=== PATIENT | female | born 1955 | race Caucasian/White ===

== ENCOUNTER → 2019-02-13 | Outpatient (CLI) | payer MEDICARE | END | disposition home or self-care (01) | LOC: RAD 10:42 | PROVIDERS: ATTEND Specialist | DX: M47.812 Spondylosis without myelopathy or radiculopathy, cervical region (principal); M47.817 Spondylosis without myelopathy or radiculopathy, lumbosacral region; M53.2X7 Spinal instabilities, lumbosacral region; M18.11 Unilateral primary osteoarthritis of first carpometacarpal joint, right hand; M65.341 Trigger finger, right ring finger; M67.919 Unspecified disorder of synovium and tendon, unspecified shoulder; M71.9 Bursopathy, unspecified | CPT/HCPCS: 72040; 72114 ==

== ENCOUNTER → 2019-02-18 | Outpatient (CLI) | payer MEDICARE | END | disposition home or self-care (01) | LOC: CFH 07:47 | PROVIDERS: ATTEND Family Medicine | DX: Z12.31 Encounter for screening mammogram for malignant neoplasm of breast (principal); M85.89 Other specified disorders of bone density and structure, multiple sites; M81.0 Age-related osteoporosis without current pathological fracture | CPT/HCPCS: 77063; 77067; 77080 ==

== ENCOUNTER 2019-04-17 10:17 | Outpatient (CLI) | payer MEDICARE | END 2019-04-17 23:59 | disposition home or self-care (01) | LOC: CFH 10:17 | PROVIDERS: ATTEND Specialist | DX: M18.0 Bilateral primary osteoarthritis of first carpometacarpal joints (principal) ==

== ENCOUNTER → 2019-04-29 | Outpatient (CLI) | payer MEDICARE | END | disposition home or self-care (01) | LOC: CFH 12:59 | PROVIDERS: ATTEND Nurse Practitioner | DX: Z12.2 Encounter for screening for malignant neoplasm of respiratory organs (principal); J44.9 Chronic obstructive pulmonary disease, unspecified; K21.9 Gastro-esophageal reflux disease without esophagitis; Z87.891 Personal history of nicotine dependence | CPT/HCPCS: G0297 ==

== ENCOUNTER → 2019-06-01 | Outpatient (CLI) | payer MEDICARE | END | disposition home or self-care (01) | LOC: RAD 11:43 | PROVIDERS: ATTEND Specialist | DX: M16.12 Unilateral primary osteoarthritis, left hip (principal) ==

== ENCOUNTER → 2019-07-30 | Outpatient (CLI) | payer MEDICARE ==
[~2019-07-30] MED LIST: AMLO10TA8 PO; CYCL-259 PO; DULO30CA2 PO; ESOM40CA PO; LISI-167 PO; Lyrica PO; OXYC-306 PO
[2019-07-30 15:06] LABS: BASOPHILS # (AUTO) 0.05 x10^3/uL (0-0.1); BASOPHILS % (AUTO) 1 % (0-1); EOSINOPHILS # (AUTO) 0.29 x10^3/uL (0-0.4); EOSINOPHILS % (AUTO) 4 % (1-7); LYMPHOCYTES # (AUTO) 2.52 x10^3/uL (1-3.4); LYMPHOCYTES % (AUTO) 32 % (22-44); MD NO; MEAN CORPUSCULAR HGB CONC 33.7 g/dL (32.4-35.8); MEAN CORPUSCULAR VOLUME 97.7 fL (80-100); MEAN PLATELET VOLUME 8.9 fL (7.4-10.4); MONOCYTES # (AUTO) 0.59 x10^3/uL (0.2-0.8); MONOCYTES % (AUTO) 8 % (2-9); NEUTROPHILS % (AUTO) 56 % (42-75); PLATELET COUNT 294 x10^3/uL (130-400); RED BLOOD COUNT 3.92 x10^6/uL (3.82-5.3); RED CELL DISTRIBUTION WIDTH 13.7 % (9.6-15.2)
[2019-07-30 15:18] LABS: ALBUMIN 4.3 g/dL (3.4-5.0); ANION GAP 8 mmol/L (5-15); CALCIUM 9.3 mg/dL (8.5-10.1); CHLORIDE 108 mmol/L (98-107)
[2019-07-30 15:22] LABS: ALANINE AMINOTRANSFERASE 37 U/L (12-78); ALKALINE PHOSPHATASE 97 U/L (45-117); BILIRUBIN,TOTAL 0.4 mg/dL (0.2-1.0); CREATININE 1.08 mg/dL (0.55-1.02); TOTAL PROTEIN 8.3 g/dL (6.4-8.2)
== END | disposition home or self-care (01) ==
LOC: STAR 13:58
PROVIDERS: ATTEND Orthopaedic Surgery
DX: Z01.818 Encounter for other preprocedural examination (principal); M16.12 Unilateral primary osteoarthritis, left hip
CPT/HCPCS: 36415; 80053; 85025; 87081; 93005

== ENCOUNTER 2019-08-05 11:18 | Observation (INO) | payer MEDICARE ==
[~2019-08-05] VITALS: Ht 154.9 cm; Wt 64.2 kg
[~2019-08-05 11:18] MED LIST changes: +EPINEPHRINE 1 MG/ML, 1ML ONE; +KETOROLAC 30 MG/1 ML ONE; +ROPIvacaine/PF 0.2%, 20 ML ONE; +SODIUM CHLORIDE 0.9% 50 ML ONE; +TRANEXAMIC ACID 100 MG/ML, 10ML ONE; +VANCOMYCIN 1,000 MG ONE
[2019-08-05] MEDS ORDERED: CHLORHEXIDINE 15 ML UDC MM ONE (11:30)
[2019-08-05] MEDS ORDERED: CELE200C PO (11:43)
[2019-08-05] MEDS ORDERED: PREG75CA PO (11:43)
[2019-08-05] MEDS ORDERED: OXYB15TA18 PO (11:43)
[2019-08-05] MEDS ORDERED: ALBU6.7H8 INH (11:43)
[2019-08-05] MEDS ORDERED: ALBU8.5H8 INH (11:43)
[2019-08-05] MEDS ORDERED: ALPR0.5T7 PO (11:43)
[2019-08-05] MEDS ORDERED: DULO30CA2 PO ×2 (11:43)
[2019-08-05] MEDS ORDERED: LACTATED RINGERS 1,000 ML IV SCH (12:00)
[2019-08-05] MEDS ORDERED: KETOROLAC 60 MG/2 ML ONE (12:35)
[2019-08-05] MEDS ORDERED: ACETAMINOPHEN 500 MG TABLET PO STA (13:27)
[2019-08-05] MEDS ORDERED: OxyconTIN ER 10 MG TAB.ER PO STA (13:27)
[2019-08-05] MEDS ORDERED: FENTANYL PF 100 MCG/2ML ONE ×6 (13:29→16:04)
[2019-08-05] MEDS ORDERED: PROPOFOL 10 MG/ML, 20ML ONE (13:30)
[2019-08-05] MEDS ORDERED: LIDOCAINE-MPF 2% ,5ML ONE ×2 (13:30→14:17)
[2019-08-05] MEDS ORDERED: CEFAZOLIN 1,000 MG ONE (13:43)
[2019-08-05] MEDS ORDERED: DEXAMETHASONE 4 MG/ML, 1ML ONE (13:43)
[2019-08-05] MEDS ORDERED: EPHEDRINE 50 MG/ML, 1ML ONE ×2 (14:17)
[2019-08-05] MEDS ORDERED: OXYcodone 5 MG/5 ML ORAL.SOL UDC PO PRN ×2 (14:30→17:00)
[2019-08-05] MEDS ORDERED: PROMETHAZINE 25 MG/ML, 1ML IVPush PRN (14:30)
[2019-08-05] MEDS ORDERED: LORazepam 2 MG/ML, 1ML IVPush PRN ×2 (14:30→17:00)
[2019-08-05] MEDS ORDERED: ONDANSETRON 2MG/ML, 2ML IVPush PRN ×2 (14:30→17:00)
[2019-08-05] MEDS ORDERED: ONDANSETRON 2MG/ML, 2ML ONE ×2 (15:06)
[2019-08-05] MEDS ORDERED: POLYETHYLENE GLYCOL 17 GM PACKET PO PRN (15:30)
[2019-08-05] MEDS ORDERED: ALUMINUM/MAG/SIMETHICONE 30 ML UDC PO PRN (15:30)
[2019-08-05] MEDS ORDERED: HYDROmorphone 1 MG/ML, 1ML INJ IVPush PRN ×3 (15:30→17:00)
[2019-08-05] MEDS ORDERED: ZOLPIDEM 5MG TABLET PO PRN (15:30)
[2019-08-05] MEDS ORDERED: PROMETHAZINE 25 MG/ML, 1ML IM PRN (15:30)
[2019-08-05] MEDS ORDERED: ONDANSETRON 4 MG TABLET PO PRN (15:30)
[2019-08-05] MEDS ORDERED: ONDANSETRON 2MG/ML, 2ML IV PRN (15:30)
[2019-08-05] MEDS ORDERED: DIPHENHYDRAMINE 25 MG CAPSULE PO PRN (15:30)
[2019-08-05] MEDS ORDERED: SENNA/DOCUSATE TABLET PO PRN (15:30)
[2019-08-05] MEDS ORDERED: DIAZEPAM 5 MG TABLET PO PRN (15:30)
[2019-08-05] MEDS ORDERED: BISACODYL 10 MG SUPP PR PRN (15:30)
[2019-08-05] MEDS ORDERED: PROMETHAZINE 12.5 MG SUPP PR PRN ×2 (15:30→17:00)
[2019-08-05] MEDS ORDERED: MAGNESIUM HYDROXIDE 8%, 30ML UDC PO PRN (15:30)
[2019-08-05] MEDS ORDERED: PSYLLIUM PACKET PO PRN (15:30)
[2019-08-05] MEDS ORDERED: LORazepam 2 MG/ML, 1ML ONE (15:33)
[2019-08-05] MEDS: FENTANYL PF 100 MCG/2ML IV PRN ×5 (15:34→16:05)
[2019-08-05] MEDS ORDERED: HYDROmorphone 1 MG/ML, 1ML INJ ONE (16:04)
[2019-08-05] MEDS ORDERED: TRANEXAMIC ACID 1,000 MG in SODIUM CHLORIDE 0.9% 100 ML IVPB ONE (17:00)
[2019-08-05] MEDS ORDERED: FENTANYL PF 100 MCG/2ML IV PRN (17:00)
[2019-08-05 19:00] VITALS: BP 103/68
[2019-08-05] MEDS: ACETAMINOPHEN 500 MG TABLET PO SCH (19:45)
[2019-08-05] MEDS: PREGABALIN 75 MG CAPSULE PO SCH ×2 (19:46→21:00)
[2019-08-05] MEDS: CALCIUM/VITAMIN D3 250-125 TABLET PO SCH (19:46)
[2019-08-05] MEDS: FERROUS SULFATE 325 MG TABLET PO SCH (19:46)
[2019-08-05] MEDS: OXYcodone IR 5MG TABLET PO PRN ×2 (20:18→21:05)
[2019-08-05] MEDS: D5%-0.45% NACL 1,000 ML IV SCH (20:19)
[2019-08-05] MEDS ORDERED: DULOXETINE 30 MG CAPSULE.DR PO SCH (21:00)
[2019-08-05] MEDS ORDERED: LISINOPRIL 10 MG TABLET PO SCH (21:00)
[2019-08-05] MEDS: KETOROLAC 30 MG/1 ML IV SCH (21:06)
[2019-08-05] MEDS: ASPIRIN 81 MG TABLET EC PO SCH (21:06)
[2019-08-05] MEDS: DOCUSATE 100 MG CAPSULE PO SCH (21:06)
[2019-08-05] MEDS: CEFAZOLIN PMX 1GM/50ML 50 ML IVPB SCH (21:07)
[2019-08-06 00:02] VITALS: BP 97/64
[2019-08-06] MEDS: ACETAMINOPHEN 500 MG TABLET PO SCH ×2 (02:15→08:16)
[2019-08-06] MEDS: OXYcodone IR 5MG TABLET PO PRN ×3 (02:16→10:35)
[2019-08-06] MEDS: D5%-0.45% NACL 1,000 ML IV SCH (03:39)
[2019-08-06 03:44] VITALS: BP 96/70
[2019-08-06] MEDS: CEFAZOLIN PMX 1GM/50ML 50 ML IVPB SCH (05:10)
[2019-08-06] MEDS: KETOROLAC 30 MG/1 ML IV SCH (05:10)
[2019-08-06] MEDS ORDERED: DEXAMETHASONE 4 MG/ML, 1ML IVPush SCH (06:00)
[2019-08-06 07:11] VITALS: BP 100/73
[2019-08-06] MEDS: CALCIUM/VITAMIN D3 250-125 TABLET PO SCH (08:15)
[2019-08-06] MEDS: FERROUS SULFATE 325 MG TABLET PO SCH (08:15)
[2019-08-06] MEDS: PREGABALIN 75 MG CAPSULE PO SCH (08:16)
[2019-08-06] MEDS: ASPIRIN 81 MG TABLET EC PO SCH (08:16)
[2019-08-06] MEDS: DOCUSATE 100 MG CAPSULE PO SCH (08:16)
[2019-08-06] MEDS ORDERED: AMLODIPINE 10 MG TAB PO SCH (09:00)
[2019-08-06] MEDS ORDERED: ASCORBIC ACID 500 MG TABLET PO SCH (09:00)
[2019-08-06] MEDS ORDERED: OXYBUTYNIN CHLORIDE 15 MG PO SCH (09:00)
[2019-08-06] MEDS ORDERED: (Esomeprazole Magnesium** (Nexium**) 40 MG) PO SCH (09:00)
[2019-08-06] MEDS ORDERED: CYCLOBENZAPRINE 10 MG TABLET PO SCH (09:00)
[2019-08-06] MEDS ORDERED: DULOXETINE 30 MG CAPSULE.DR PO SCH (09:00)
[2019-08-06] MEDS ORDERED: MULTIVITAMINS/MINERALS TABLET PO SCH (09:00)
[2019-08-06] MEDS ORDERED: OXYC5TAB2 PO (09:28)
[2019-08-06 10:46] VITALS: BP 116/77
== END 2019-08-06 11:51 | disposition home or self-care (01) ==
LOC: OUT 11:18 → ORIP 15:27 → 4NE 18:07
PROVIDERS: ADMIT Orthopaedic Surgery; ATTEND Orthopaedic Surgery
DX: M16.12 Unilateral primary osteoarthritis, left hip (principal); I10 Essential (primary) hypertension; J44.9 Chronic obstructive pulmonary disease, unspecified; K21.9 Gastro-esophageal reflux disease without esophagitis; M81.0 Age-related osteoporosis without current pathological fracture; M79.7 Fibromyalgia; Z79.899 Other long term (current) drug therapy; Z87.891 Personal history of nicotine dependence
CPT/HCPCS: 27130; 36415; 72170; 85014; 85018; 86850; 86900; 96365; 96366; 96375; 96376; 97161; 97165; C1713; C1776; G0378; J0171; J0690; J1100; J1170; J1885; J2060; J2405; J2704; J2795; J3010; J3370; J3490; J7120

== ENCOUNTER → 2020-03-17 | Outpatient (CLI) | payer MEDICARE ==
[~2020-03-17] MED LIST changes: +ALBU6.7H8 INH; +ALBU8.5H8 INH; +ALPR0.5T7 PO; +AMLO-211 PO; -AMLO10TA8 PO; +CELE200C PO; -EPINEPHRINE 1 MG/ML, 1ML ONE; +HYDR-826 PO; -KETOROLAC 30 MG/1 ML ONE; +OXYB15TA18 PO; +OXYC5TAB2 PO; +PREG75CA PO; +Pt. to Bring List; -ROPIvacaine/PF 0.2%, 20 ML ONE; -SODIUM CHLORIDE 0.9% 50 ML ONE; -TRANEXAMIC ACID 100 MG/ML, 10ML ONE; -VANCOMYCIN 1,000 MG ONE
[2020-03-17 12:24] LABS: BASOPHILS % (AUTO) 1 % (0-1); EOSINOPHILS % (AUTO) 0 % (1-7); LYMPHOCYTES % (AUTO) 19 % (22-44); MEAN CORPUSCULAR HEMOGLOBIN 31.9 pg (27.0-34.8); MEAN CORPUSCULAR HGB CONC 33.9 g/dL (32.4-35.8); MEAN PLATELET VOLUME 7.7 fL (7.4-10.4); MONOCYTES % (AUTO) 6 % (2-9); NEUTROPHILS % (AUTO) 74 % (42-75); PLATELET COUNT 341 x10^3/uL (130-400); RED BLOOD COUNT 3.87 x10^6/uL (3.82-5.3); RED CELL DISTRIBUTION WIDTH 12.8 % (9.6-15.2)
[2020-03-17 12:26] LABS: MD NO
[2020-03-17 12:34] LABS: ALBUMIN 4.1 g/dL (3.4-5.0); ANION GAP 6 mmol/L (5-15); CALCIUM 9.3 mg/dL (8.5-10.1); CHLORIDE 102 mmol/L (98-107)
[2020-03-17 12:38] LABS: ALANINE AMINOTRANSFERASE 39 U/L (12-78); ALKALINE PHOSPHATASE 96 U/L (45-117); BILIRUBIN,TOTAL 0.4 mg/dL (0.2-1.0); CREATININE 0.94 mg/dL (0.55-1.02); TOTAL PROTEIN 7.8 g/dL (6.4-8.2)
== END | disposition home or self-care (01) ==
LOC: STAR 11:04
PROVIDERS: ATTEND Orthopaedic Surgery
DX: Z01.810 Encounter for preprocedural cardiovascular examination (principal); Z01.818 Encounter for other preprocedural examination; M25.551 Pain in right hip; Z20.828 Contact with and (suspected) exposure to other viral communicable diseases
CPT/HCPCS: 80053; 85025; 87081; 87635; 93005

== ENCOUNTER 2020-03-23 09:23 | Observation (INO) | payer MEDICARE ==
[~2020-03-23] VITALS: Ht 154.9 cm; Wt 66.2 kg
[~2020-03-23 09:23] MED LIST changes: -OXYC-306 PO; +OXYC1TAB17 PO
[2020-03-23] MEDS ORDERED: PROMETHAZINE 25 MG/ML, 1ML IVPush PRN (09:30)
[2020-03-23] MEDS ORDERED: hydrALAzine 20 MG/ML, 1ML IV PRN (09:30)
[2020-03-23] MEDS ORDERED: EPHEDRINE 50 MG/ML, 1ML IVPush PRN ×2 (09:30→11:30)
[2020-03-23] MEDS ORDERED: OXYcodone 5 MG/5 ML ORAL.SOL UDC PO PRN ×2 (09:30→11:30)
[2020-03-23] MEDS ORDERED: LABETALOL 5MG/ML, 20ML IV PRN ×2 (09:30→11:30)
[2020-03-23] MEDS ORDERED: ONDANSETRON 2MG/ML, 2ML IVPush PRN ×3 (09:30→11:30)
[2020-03-23] MEDS ORDERED: HYDROmorphone 1 MG/ML, 1ML INJ IVPush PRN ×2 (09:30→11:30)
[2020-03-23] MEDS ORDERED: FENTANYL PF 100 MCG/2ML IV PRN (09:30)
[2020-03-23] MEDS ORDERED: CHLORHEXIDINE 15 ML UDC ONE (10:15)
[2020-03-23] MEDS ORDERED: ACETAMINOPHEN 500 MG TABLET PO ONE (10:30)
[2020-03-23] MEDS ORDERED: VANCOMYCIN PER PHARMACY MC ONE (10:30)
[2020-03-23] MEDS ORDERED: PLEASE ENTER ALLERGIES MC SCH (10:30)
[2020-03-23] MEDS ORDERED: CHLORHEXIDINE 15 ML UDC MM ONE (10:30)
[2020-03-23] MEDS ORDERED: LACTATED RINGERS 1,000 ML IV SCH (11:00)
[2020-03-23] MEDS ORDERED: VANCOMYCIN 1,600 MG in SODIUM CHLORIDE 0.9% 250 ML IV ONE (11:00)
[2020-03-23] MEDS ORDERED: TRANEXAMIC ACID 100 MG/ML, 10ML ONE ×2 (11:14→11:16)
[2020-03-23] MEDS ORDERED: KETOROLAC 60 MG/2 ML ONE (11:14)
[2020-03-23] MEDS ORDERED: ROPIvacaine/PF 0.2%, 20 ML ONE (11:15)
[2020-03-23] MEDS ORDERED: VANCOMYCIN 1,000 MG ONE (11:15)
[2020-03-23] MEDS ORDERED: SODIUM CHLORIDE 0.9% 50 ML ONE (11:15)
[2020-03-23] MEDS ORDERED: EPINEPHRINE 1 MG/ML, 1ML ONE (11:16)
[2020-03-23] MEDS ORDERED: GLYCOPYRROLATE 0.2MG/1ML, 5ML ONE (11:28)
[2020-03-23] MEDS ORDERED: MIDAZOLAM 1 MG/ML, 2ML ONE ×2 (11:28→11:39)
[2020-03-23] MEDS ORDERED: DEXAMETHASONE 4 MG/ML, 5ML ONE (11:28)
[2020-03-23] MEDS ORDERED: PROPOFOL 10 MG/ML, 20ML ONE (11:28)
[2020-03-23] MEDS ORDERED: LIDOCAINE-MPF 2% ,5ML ONE (11:28)
[2020-03-23] MEDS ORDERED: FENTANYL PF 250 MCG/5ML ONE ×2 (11:28→11:40)
[2020-03-23] MEDS ORDERED: ROCURONIUM 10MG/ML,5ML ONE (11:28)
[2020-03-23] MEDS ORDERED: DIPHENHYDRAMINE 50 MG/ML, 1ML IVPush PRN (11:30)
[2020-03-23] MEDS ORDERED: OXYcodone/APAP 5/325MG TABLET PO PRN (11:30)
[2020-03-23] MEDS ORDERED: HYDROcodone/APAP 7.5-325MG/15ML UDC PO PRN (11:30)
[2020-03-23] MEDS ORDERED: MORPHINE SULFATE 4 MG/ML, 1ML IVPush PRN (11:30)
[2020-03-23] MEDS ORDERED: MIDAZOLAM 1 MG/ML, 2ML IV PRN (11:30)
[2020-03-23] MEDS ORDERED: METHOCARBAMOL 1,000 MG in DEXTROSE 5% 100 ML IV PRN (11:30)
[2020-03-23] MEDS ORDERED: LORazepam 2 MG/ML, 1ML IVPush PRN (11:30)
[2020-03-23] MEDS ORDERED: ONDANSETRON 4 MG TABLET PO PRN (11:30)
[2020-03-23] MEDS ORDERED: ALBUTEROL SULFATE 2.5 MG/3 ML NPPB PRN (11:30)
[2020-03-23] MEDS ORDERED: EPHEDRINE 50 MG/ML, 1ML IM PRN (11:30)
[2020-03-23] MEDS ORDERED: PROMETHAZINE 12.5 MG SUPP PR PRN (11:30)
[2020-03-23] MEDS ORDERED: MEPERIDINE/PF 25MG/0.5ML IVPush PRN (11:30)
[2020-03-23] MEDS ORDERED: METOCLOPRAMIDE 5 MG/ML, 2ML IVPush PRN (11:30)
[2020-03-23] MEDS ORDERED: DIPHENHYDRAMINE 50 MG CAPSULE PO PRN (11:30)
[2020-03-23] MEDS ORDERED: HALOPERIDOL 5 MG/ML IV ONE (11:30)
[2020-03-23] MEDS ORDERED: CEFAZOLIN 1,000 MG ONE (11:51)
[2020-03-23] MEDS ORDERED: OXYcodone 5 MG/5 ML ORAL.SOL UDC ONE (13:38)
[2020-03-23] MEDS ORDERED: FENTANYL PF 100 MCG/2ML ONE ×2 (13:38→13:59)
[2020-03-23] MEDS: FENTANYL PF 100 MCG/2ML IV PRN ×4 (13:45→14:00)
[2020-03-23] MEDS ORDERED: TRANEXAMIC ACID 1,000 MG in SODIUM CHLORIDE 0.9% 100 ML IVPB ONE (13:54)
[2020-03-23] MEDS ORDERED: DIAZEPAM 5 MG/ML, 2ML ONE (14:00)
[2020-03-23] MEDS: DIAZEPAM 5 MG/ML, 2ML IVPush PRN ×2 (14:03→14:15)
[2020-03-23] MEDS ORDERED: ALBUTEROL HFA 90 MCG/SPRAY INH PRN (16:00)
[2020-03-23] MEDS ORDERED: ALBUTEROL HFA 90 MCG/SPRAY INH SCH (16:00)
[2020-03-23] MEDS: KETOROLAC 30 MG/1 ML IV SCH ×2 (16:23→23:26)
[2020-03-23] MEDS: PREGABALIN 75 MG CAPSULE PO SCH ×2 (16:23→20:46)
[2020-03-23] MEDS: OXYcodone/APAP 10/325MG TABLET PO PRN ×2 (17:55→23:27)
[2020-03-23 19:24] VITALS: BP 104/51
[2020-03-23] MEDS: CEFAZOLIN PMX 1GM/50ML 50 ML IVPB SCH (20:34)
[2020-03-23] MEDS: DOCUSATE 100 MG CAPSULE PO SCH (20:47)
[2020-03-23] MEDS ORDERED: LISINOPRIL 10 MG TABLET PO SCH (21:00)
[2020-03-23] MEDS ORDERED: DULOXETINE 30 MG CAPSULE.DR PO SCH (21:00)
[2020-03-24 00:07] VITALS: BP 115/71
[2020-03-24 04:30] VITALS: BP 132/84
[2020-03-24] MEDS: OXYcodone/APAP 10/325MG TABLET PO PRN ×2 (04:39→08:48)
[2020-03-24] MEDS: CEFAZOLIN PMX 1GM/50ML 50 ML IVPB SCH (04:39)
[2020-03-24] MEDS ORDERED: ASPIRIN 81 MG TABLET EC PO SCH ×3 (06:00→18:00)
[2020-03-24] MEDS ORDERED: DEXAMETHASONE 4 MG/ML, 1ML IVPush SCH (06:00)
[2020-03-24 07:45] VITALS: BP 121/72
[2020-03-24] MEDS: KETOROLAC 30 MG/1 ML IV SCH (08:01)
[2020-03-24] MEDS: DOCUSATE 100 MG CAPSULE PO SCH (08:03)
[2020-03-24] MEDS: PREGABALIN 75 MG CAPSULE PO SCH (08:04)
[2020-03-24] MEDS ORDERED: DULOXETINE 30 MG CAPSULE.DR PO SCH (09:00)
[2020-03-24] MEDS ORDERED: OXYBUTYNIN CHLORIDE 5 MG TABLET PO SCH (09:00)
[2020-03-24] MEDS ORDERED: CYCLOBENZAPRINE 10 MG TABLET PO SCH (09:00)
[2020-03-24] MEDS ORDERED: AMLODIPINE 10 MG TAB PO SCH (09:00)
[2020-03-24] MEDS ORDERED: ALBUTEROL HFA 90 MCG/SPRAY INH SCH (09:00)
[2020-03-24] MEDS ORDERED: (Esomeprazole Magnesium** (Nexium**) 40 MG) PO SCH (09:00)
== END 2020-03-24 12:30 | disposition home or self-care (01) ==
LOC: OUT 09:23 → ORIP 11:25 → 4NE 15:02
PROVIDERS: ADMIT Orthopaedic Surgery; ATTEND Orthopaedic Surgery
DX: M16.11 Unilateral primary osteoarthritis, right hip (principal); J45.909 Unspecified asthma, uncomplicated; M79.7 Fibromyalgia; I10 Essential (primary) hypertension; K21.9 Gastro-esophageal reflux disease without esophagitis; M81.0 Age-related osteoporosis without current pathological fracture; F41.8 Other specified anxiety disorders; F17.200 Nicotine dependence, unspecified, uncomplicated; Z96.641 Presence of right artificial hip joint; Z79.899 Other long term (current) drug therapy
CPT/HCPCS: 27130; 36415; 72170; 86850; 86900; 96365; 96366; 96375; 96376; 97161; C1713; C1776; G0378; J0171; J0690; J1100; J1885; J2250; J2704; J2795; J3010; J3360; J3370; J3490; J7050; J7120; Q0177

== ENCOUNTER → 2020-05-13 | Outpatient (CLI) | payer MEDICARE ==
[~2020-05-13] MED LIST changes: -CYCL-259 PO; +CYCL10TA2 PO
== END | disposition home or self-care (01) ==
LOC: CFH 10:27
PROVIDERS: ATTEND Internal Medicine
DX: Z12.2 Encounter for screening for malignant neoplasm of respiratory organs (principal); Z87.891 Personal history of nicotine dependence
CPT/HCPCS: 71271